=== PATIENT | female | born 1960 | race Caucasian/White ===

== ENCOUNTER 2024-06-22 04:04 | Day surgery (SDC) | payer MEDICARE, SELFPAY ==
[2024-06-04 13:15] VITALS: BMI 38.0
[2024-06-22 06:30] VITALS: BP 136/71; PULSE 90; RESP 19; TEMP 36.6; O2SAT 98
[2024-06-22] MEDS: LACTATED RINGERS 1,000 ML 150 ML IV CONT (06:43)
[2024-06-22 06:44] LABS: Glucose Point of Care 123 mg/dl (65-105)
--- NOTE | 2024-06-22 07:25 | WPDANESEPPF ---
Anes - Initial Pre Proc Eval Procedure: Operation Date: 06/22/24 07:30 Proposed Procedures p Screening Colonoscopy - Kodak Argueta MD Date/Time: 06/22/24 07:25 Surgeon: Kodak Argueta MD Pre Op Diagnosis: screening of neoplasm of colon Patient Data Age: 63 Gender: F Height: 1.7 m Weight: 106.9 kg Last Vital Signs Temp 97.8 F 06/22/24 06:30 Pulse 90 06/22/24 06:30 Resp 19 06/22/24 06:30 BP 136/71 06/22/24 06:30 Pulse Ox 98 06/22/24 06:30 O2 Del Method Room Air 06/22/24 06:30 Allergies Allergy/AdvReac Type Severity Reaction Status Date / Time tetracycline Allergy Intermediate Blister Verified 06/22/24 06:28 Home Medications Medication Instructions Recorded Confirmed Type escitalopram oxalate 20 mg tablet 20 mg PO DAILY 06/04/24 06/22/24 History ezetimibe 10 mg tablet 10 mg PO DAILY 06/04/24 06/22/24 History lisinopril 5 mg tablet 5 mg PO DAILY 06/04/24 06/22/24 History metoprolol tartrate 100 mg tablet 100 mg PO BID 06/04/24 06/22/24 History rosuvastatin 20 mg tablet 20 mg PO DAILY 06/04/24 06/22/24 History semaglutide 1 mg/dose (4 mg/3 mL) 2 mg subcut WEEKLY 06/04/24 06/22/24 History subcutaneous pen injector (Ozempic) Laboratory Tests 06/22/24 06:41 POC Capillary Glucose 123 H mg/dl (65-105) Patient hx anesthesia problems: none Family hx anesthesia problems: none Results Review: All pre-operative results and documents have been reviewed as part of the pre-operative evaluation. [facility] Social History Social History Smoking status: Never smoker Alcohol intake: never Substance use: never Substance use type: does not use Living arrangements: alone Spiritual care concerns: No Anes - Eval Final PreProcedure Day of Procedure 06/22/24 07:25 Patient weight: obese Heart: regular rate and rhythm Lungs: clear to auscultation Airway: Mallampati scale class III Neurological: alert and oriented Last oral intake: >/= 8 hours ASA classification: III Emergent: no Anesthetic plan: proceed Anesthesia type and monitoring: general GIVS and standard monitoring Results Review: All pre-operative results and documents have been reviewed as part of the pre-operative evaluation. Informed Consent: The patient's anesthetic plan and its attendant risks and benefits were discussed with the patient/family/POA. Questions were solicited and answers provided to the satisfaction of the patient/family/POA.
--- NOTE | 2024-06-22 07:27 | PM.IMHP ---
H&P: HPI History of Present Illness Date/Time: 06/22/24 07:27 Chief Complaint: screening colonoscopy Narrative: the patient's last colonoscopy was 10 years ago. She is considered an average risk colon cancer. Review of Systems Review of Systems: All systems reviewed & are unremarkable except as noted in HPI and below PMFSH Social History Social History Smoking status: Never smoker Alcohol intake: never Substance use: never Substance use type: does not use Living arrangements: alone Spiritual care concerns: No Meds Home Medications and Allergies Home Medications Medication Instructions Recorded Confirmed Type escitalopram oxalate 20 mg tablet 20 mg PO DAILY 06/04/24 06/22/24 History ezetimibe 10 mg tablet 10 mg PO DAILY 06/04/24 06/22/24 History lisinopril 5 mg tablet 5 mg PO DAILY 06/04/24 06/22/24 History metoprolol tartrate 100 mg tablet 100 mg PO BID 06/04/24 06/22/24 History rosuvastatin 20 mg tablet 20 mg PO DAILY 06/04/24 06/22/24 History semaglutide 1 mg/dose (4 mg/3 mL) 2 mg subcut WEEKLY 06/04/24 06/22/24 History subcutaneous pen injector (Ozempic) Allergies Allergy/AdvReac Type Severity Reaction Status Date / Time tetracycline Allergy Intermediate Blister Verified 06/22/24 06:28 Vital Signs Vital Signs - 24 hr 06/22/24 06:30 Temperature 97.8 F Pulse Rate 90 Respiratory Rate 19 Blood Pressure 136/71 Pulse Oximetry 98 Oxygen Delivery Room Air Assessment and Plan Assessment and plan (1) Screening for malignant neoplasm of colon: Code(s): Z12.11 - Encounter for screening for malignant neoplasm of colon Status: Acute Plan Patient deemed a good candidate for colonoscopy. Will proceed.
[2024-06-22 08:01] VITALS: BP 120/68; PULSE 82; RESP 20; O2SAT 98
[2024-06-22 08:11] VITALS: BP 125/78; PULSE 79; RESP 16; O2SAT 98
[2024-06-22 08:21] VITALS: BP 136/79; PULSE 79; RESP 20; O2SAT 98
== END 2024-06-22 08:34 | disposition home or self-care (01) ==
PROVIDERS: PCP Internal Medicine; Visit Provider Internal Medicine Gastroenterology
PROC: 0DJD8ZZ Inspection of Lower Intestinal Tract, Via Natural or Artificial Opening Endoscopic (ICD-10-PCS; CPT 45378; principal; 2024-06-22 07:30)
DX: Z12.11 Encounter for screening for malignant neoplasm of colon (principal); K63.5 Polyp of colon; K64.0 First degree hemorrhoids; Z79.85 Long-term (current) use of injectable non-insulin antidiabetic drugs; E66.9 Obesity, unspecified; Z68.36 Body mass index [BMI] 36.0-36.9, adult
CPT/HCPCS: 45385; 82948; 88305; J2003; J2704; J7120